=== PATIENT | female | born 1950 | race African-American/Black ===

== ENCOUNTER 2017-12-27 22:03 | Emergency (ER) | payer MEDICARE, MEDICAID ==
[~2017-12-27] VITALS: Ht 177.8 cm; Wt 116.6 kg
[~2017-12-27 22:03] MED LIST: ALBUTEROL SULF8.5 GM INH; AMLODIPINE BESY10 MG ORAL; AZITHROMYCIN250 MG ORAL; CARVEDILOL25 MG ORAL; CLONIDINE0.1 MG GT; CLONIDINE0.1 MG PO; CLONIDINE1 EAC1 TD; CLOPIDOGREL75 MG ORAL; FAMOTIDINE20 MG ORAL; FUROSEMIDE20 M1 ORAL; FUROSEMIDE40 MG ORAL; HUMALOG100 UNIT/3 SUBQ; ISORDIL40 M1 PO; ISORDIL40 MG ORAL; LANTUS SOL100 UNIT/1 SUBQ; LANTUS5 UNITS SUBQ; LEVOTHYROXINE50 MCG ORAL; LIPITOR40 MG ORAL; LOSARTAN POTAS100 MG ORAL; OYSCO 500+D TA1 EAC1 PO; VITAMIN B-12250 MC2 PO; VITAMIN D22000 UNIT PO; Vit B12 PO
[2017-12-27] MEDS ORDERED: Morphine Sulfate 4mg/ml Inj IVP ONE (22:45)
[2017-12-27 23:12] LABS: EOSINOPHILS % (AUTO) 3.5 % (0.0-3.0); HEMATOCRIT 32.5 % (37.0-47.0); HEMOGLOBIN 10.7 G/DL (12.0-16.0); LYMPHOCYTES % (AUTO) 25.6 % (20.0-45.0); MEAN CORPUSCULAR VOLUME 88 FL (80-99); MONOCYTES % (AUTO) 7.2 % (1.0-10.0); NEUTROPHILS % (AUTO) 62.7 % (45.0-75.0); PLATELET COUNT 243 K/UL (150-450); RED BLOOD COUNT 3.69 M/UL (4.20-5.40); RED CELL DISTRIBUTION WIDTH 13.3 % (11.6-14.8); WHITE BLOOD COUNT 7.7 K/UL (4.8-10.8)
[2017-12-27 23:23] LABS: ANION GAP 12 mmol/L (5-15); BLOOD UREA NITROGEN 57 mg/dL (7-18); CALCIUM 8.1 MG/DL (8.5-10.1); CARBON DIOXIDE 28 MMOL/L (21-32); CHLORIDE 97 MMOL/L (98-107); CREATININE 11.7 MG/DL (0.55-1.30); POTASSIUM 4.2 MMOL/L (3.5-5.1); SODIUM 137 MMOL/L (136-145)
[2017-12-27 23:28] LABS: ALANINE AMINOTRANSFERASE 13 U/L (12-78); ALBUMIN 3.3 G/DL (3.4-5.0); ALBUMIN/GLOBULIN RATIO 0.7 (1.0-2.7); ALKALINE PHOSPHATASE 154 U/L (46-116); ASPARTATE AMINO TRANSFERASE 13 U/L (15-37); BILIRUBIN,TOTAL 0.3 MG/DL (0.2-1.0)
[2017-12-28 00:21] VITALS: BP 131/60
--- NOTE | 2017-12-28 01:13 | Emergency Room Report ---
History of Present Illness General Chief Complaint: Chest Pain Source: Patient, Family Member Present Illness HPI Is a 67-year-old female with history of renal failure on hemodialysis. Also history of gallstone. She presents with chief complaint of left sided pain has been ongoing for a week but worse tonight. Worse with movement and palpation. No fever chills. [place] nauseous but no vomiting. Also with epigastric pain and burping tonight. Denies any other complaint. No diarrhea. No alcohol. Allergies: Coded Allergies: No Known Allergies (Unverified , 02/05/13) Patient History Past Medical History: see triage record, old chart reviewed, DM, HTN, renal disease, dialysis Past Surgical History: other Pertinent Family History: none Social History: Denies: smoking Last Menstrual Period: NA Now: No Immunizations: other Reviewed Nursing Documentation: PMH: Agreed; PSxH: Agreed Nursing Documentation-PMH Hx Cardiac Problems: Yes Hx Hypertension: Yes Hx Asthma: No - hypothyrodism Hx Diabetes: Yes Hx Cancer: No Hx Gastrointestinal Problems: No Hx Dialysis: Yes - starts 08/12/15 Hx Neurological Problems: Yes - 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 Hx Cerebrovascular Accident: Yes - September 2010 Hx Weakness: Yes - Left side weakness Review of Systems Eye: Denies: eye pain, blurred vision ENT: Denies: ear pain, nose congestion, throat swelling Respiratory: Denies: cough, shortness of breath Cardiovascular: Denies: chest pain, palpitations Gastrointestinal: Reports: abdominal pain; Denies: diarrhea, nausea, vomiting Musculoskeletal: Denies: back pain, joint pain Skin: Denies: rash Neurological: Denies: headache, numbness Endocrine: Denies: increased thirst, increased urine Hematologic/Lymphatic: Denies: easy bruising All Other Systems: negative except mentioned in HPI Physical Exam Vital Signs Date Time Temp Pulse Resp B/P (MAP) Pulse Ox O2 Delivery O2 Flow Rate FiO2 12/27/17 22:09 97.8 79 18 160/84 98 Room Air 97.9 vitals with high blood pressure Sp02 EP Interpretation: reviewed, normal General Appearance: well appearing, no apparent distress, alert Head: normocephalic, atraumatic Eyes: bilateral eye PERRL, bilateral eye EOMI ENT: hearing grossly normal, normal pharynx Neck: full range of motion, supple, no meningismus Respiratory: chest non-tender, lungs clear, normal breath sounds Cardiovascular #1: regular rate, rhythm, no murmur Gastrointestinal: normal bowel sounds, no mass, no organomegaly, no bruit, non- distended, tenderness - left upper quadrant flank Musculoskeletal: back normal, gait/station normal, normal range of motion Neurologic: alert, oriented x3 Psychiatric: mood/affect normal Skin: warm/dry Medical Decision Making Diagnostic Impression: Primary Impression: Pancreatitis, acute Qualified Codes: K85.90 - Acute pancreatitis without necrosis or infection, unspecified ER Course Patient with left upper quadrant/flank pain and has appendicitis. Labs are at baseline. No evidence of obstruction or common bile duct stone. She does have a gallstone but no evidence of inflammatory changes or elevated LFT. I discussed the case with Dr. Teague who the patient for transfer to [facility]. Laboratory Tests Test 12/27/17 22:50 White Blood Count 7.7 K/UL (4.8-10.8) Red Blood Count 3.69 M/UL (4.20-5.40) L Hemoglobin 10.7 G/DL (12.0-16.0) L Hematocrit 32.5 % (37.0-47.0) L Mean Corpuscular Volume 88 FL (80-99) Mean Corpuscular Hemoglobin 28.9 PG (27.0-31.0) Mean Corpuscular Hemoglobin Concent 32.7 G/DL (32.0-36.0) Red Cell Distribution Width 13.3 % (11.6-14.8) Platelet Count 243 K/UL (150-450) Mean Platelet Volume 6.8 FL (6.5-10.1) Neutrophils (%) (Auto) 62.7 % (45.0-75.0) Lymphocytes (%) (Auto) 25.6 % (20.0-45.0) Monocytes (%) (Auto) 7.2 % (1.0-10.0) Eosinophils (%) (Auto) 3.5 % (0.0-3.0) H Basophils (%) (Auto) 1.0 % (0.0-2.0) Sodium Level 137 MMOL/L (136-145) Potassium Level 4.2 MMOL/L (3.5-5.1) Chloride Level 97 MMOL/L (98-107) L Carbon Dioxide Level 28 MMOL/L (21-32) Anion Gap 12 mmol/L (5-15) Blood Urea Nitrogen 57 mg/dL (7-18) H Creatinine 11.7 MG/DL (0.55-1.30) H Estimat Glomerular Filtration Rate 3.9 mL/min (>60) Glucose Level 110 MG/DL (74-106) H Calcium Level 8.1 MG/DL (8.5-10.1) L Total Bilirubin 0.3 MG/DL (0.2-1.0) Aspartate Amino Transf (AST/SGOT) 13 U/L (15-37) L Alanine Aminotransferase (ALT/SGPT) 13 U/L (12-78) Alkaline Phosphatase 154 U/L (46-116) H Troponin I 0.000 ng/mL (0.000-0.056) Total Protein 8.0 G/DL (6.4-8.2) Albumin 3.3 G/DL (3.4-5.0) L Globulin 4.7 g/dL Albumin/Globulin Ratio 0.7 (1.0-2.7) L Lipase 4873 U/L (73-393) H Lab Results Impression labs with elevated lipase EKG Diagnostic Results Rate: normal Rhythm: NSR ST Segments: no acute changes ASA given to the pt in ED: No Rhythm Strip Diag. Results Rhythm Strip Time: 01:20 EP Interpretation: yes Rate: 70 Rhythm: NSR, no PVC's, no ectopy Chest X-Ray Diagnostic Results Chest X-Ray Diagnostic Results : Chest X-Ray Ordered: Yes # of Views/Limited/Complete: 1 View Indication: Chest Pain EP Interpretation: Yes Interpretation: no consolidation, no effusion, no pneumothorax, no acute cardiopulmonary disease Impression: No acute disease Electronically Signed by: Gigi Joe MD Last Vital Signs Date Time Temp Pulse Resp B/P (MAP) Pulse Ox O2 Delivery O2 Flow Rate FiO2 12/28/17 00:21 98.6 77 18 131/60 97 Room Air 98.6 Status: improved Disposition: XFER SHT-TRM HOSP Condition: Stable Referrals: [facility],REFERRING (PCP) GIGI JOE M.D. Dec 28, 2017 01:13
[2017-12-28 03:09] VITALS: BP 124/59
[2017-12-28 03:10] VITALS: BP 130/69
[2017-12-28] MEDS ORDERED: Morphine Sulfate 4mg/ml Inj IVP ONE (03:15)
--- NOTE | 2017-12-28 09:49 | Diagnostic Imaging Report ---
Indication: Left-sided abdominal pain x7 days Technique: Spiral acquisitions obtained through the abdomen and pelvis. No oral contrast utilized, per emergency room physician request No IV contrast utilized, per referring physician request.. Multiplanar reconstructions were generated. Total dose length product 1454.88 mGycm. CTDIvol(s) 26.2 mGy. Dose reduction achieved using automated exposure control Comparison: None Findings: There is edema of the peripancreatic fat immediately surrounding the pancreas. No peripancreatic fluid or remote fluid demonstrated. No pancreatic mass. The pancreatic margins remain overall fairly well-defined. There are small gallstones present. No biliary ductal dilatation. No definite radiopaque common duct stones are evident. Lack of IV contrast limits assessment of the solid organs. The liver is unremarkable. The spleen is unremarkable. The right adrenal is unremarkable. The left adrenal demonstrates a 2 cm mass, attenuation of which is approximately 2-4 Hounsfield units. The kidneys are atrophic. No hydronephrosis nor focal renal abnormality. No pelvic mass or adenopathy. The bladder is nondistended. The appendix is not definitely identified, but no findings to suggest acute appendicitis are evident. There is fairly extensive colonic diverticulosis. No evidence of diverticulitis. No small bowel distention. No free or loculated intraperitoneal air or fluid is evident. Distal esophagus, stomach, duodenum are unremarkable. The lung bases demonstrate posterior dependent atelectasis or scarring on the right. There are degenerative spondylosis changes. The bones are otherwise unremarkable. Impression: Findings are compatible with uncomplicated acute pancreatitis Cholelithiasis. No definite biliary ductal dilatation 2 cm left adrenal adenoma Colonic diverticulosis. No evidence of diverticulitis Other findings as noted, including degenerative spondylosis, right-sided posterior dependent pulmonary parenchymal atelectasis or scarring This agrees with the preliminary interpretation provided overnight by [facility] teleradiology service. The CT scanner at [facility] is accredited by the [employer] and the scans are performed using protocols designed to limit radiation exposure to as low as reasonably achievable to attain images of sufficient resolution adequate for diagnostic evaluation.
--- NOTE | 2017-12-28 09:50 | Diagnostic Imaging Report ---
Indication: Shortness of breath Technique: One view of the chest Comparison: 08/10/2015 Findings: Better inspiration currently. Lungs and pleural spaces are clear. Heart size is normal. Aorta is tortuous and ectatic Impression: No acute process
--- NOTE | 2017-12-29 16:57 | Cardiology Report ---
APPROVED REPORT EKG Measurement Heart [id number] Normal sinus rhythm Normal ECG
== END 2017-12-28 03:06 | disposition short-term general hospital (02) ==
LOC: EMR 22:30 → EDBEDREQ 23:50 → EMR 12-28 03:06
DX: K85.90 Acute pancreatitis without necrosis or infection, unspecified (principal); I12.0 Hypertensive chronic kidney disease with stage 5 chronic kidney disease or end stage renal disease; N18.6 End stage renal disease; Z99.2 Dependence on renal dialysis; E03.9 Hypothyroidism, unspecified; E11.9 Type 2 diabetes mellitus without complications; I69.354 Hemiplegia and hemiparesis following cerebral infarction affecting left non-dominant side; K80.20 Calculus of gallbladder without cholecystitis without obstruction; D35.02 Benign neoplasm of left adrenal gland; K57.30 Diverticulosis of large intestine without perforation or abscess without bleeding
CPT/HCPCS: 36415; 71045; 74176; 80053; 82962; 83690; 84484; 85025; 93005; 96374; 96375; 96376; 99284; J2270; J2405